=== PATIENT | female | born 1985 | race Two or more races ===

== ENCOUNTER 2024-08-25 15:34 | Emergency (ER) | payer MEDICAID, SELFPAY ==
[2024-08-25 15:35] VITALS: BMI 25.6
[2024-08-25 15:44] VITALS: BP 130/87; PULSE 88; RESP 16; TEMP 36.9; O2SAT 98
[2024-08-25 16:21] LABS: Collection Type, Urine Clean Catch; RBC,Urine 0 /hpf (0-3)
[2024-08-25 16:29] LABS: Bilirubin,Urine Negative (Negative); Blood,Urine Negative (Negative); Clarity,Urine Clear (Clear/Hazy); Color,Urine Colorless (Lt Yel-Yel); Culture Indicated,Urine Not Indicated; Glucose, Urine Negative (Negative); Ketones,Urine Negative (Negative); Leukocyte Esterase,Urine Negative (Negative); Nitrite,Urine Negative (Negative); PH,Urine 6.5 (5.0-7.0); Protein,Urine Negative (Neg - Trace); Specific Gravity,Urine 1.006 (1.001-1.035); Squamous Epithelial Cell,Urine < 1 /hpf (0-5); Urobilinogen,Urine Negative mg/dL (0.0-1.0); WBC,Urine < 1 /hpf (0-5)
[2024-08-25 16:41] LABS: HCG Qualitative,Urine Negative
--- NOTE | 2024-08-25 16:43 | PD.EDRME ---
Rapid Medical Screening Exam RME Arrival date/time: 08/25/24 15:34 39-year-old female presents to emergency department complains of left flank pain left abdominal pain Chief Complaint: Abdominal Pain Time Seen by Provider: 08/25/24 15:40 Vital signs: Vital Signs Temperature 98.5 F 08/25/24 15:44 Pulse Rate 88 08/25/24 15:44 Respiratory Rate 16 08/25/24 15:44 Blood Pressure 130/87 H 08/25/24 15:44 Pulse Oximetry (%) 98 08/25/24 15:44 Oxygen Delivery Method Room Air 08/25/24 15:44
--- NOTE | 2024-08-25 16:44 | XR_ITS ---
Examination: CT abdomen and pelvis without contrast. Coronal 3-D reconstructions. Sagittal 2-D reconstructions. Date and time of exam:August 25, 2024 1750 hrs. Comparison April 09, 2024 Indications: Onset left flank pain beginning 6 days ago CTDI: vol (mGy): 6.48 DLP: (mGycm): 346 Technique: Axial images of the abdomen have been obtained, 3 mm slice thickness Intravenous contrast material has not been administered. Low dose protocols were performed. One or more of the following dose reduction techniques were used; automated exposure control, adjustment of the mA and/or KV according to patient size, use of iterative reconstruction technique. Findings: No liver or splenic lesion Contracted gallbladder No pancreatic or adrenal mass Mild to moderate bilateral renal parenchymal scar formation No renal or ureteral calculi, there is mild dilatation of both renal calyceal systems Normal appendix No bowel obstruction or diverticulitis Anteverted uterus Urinary bladder intact The osseous structures are intact Impression: Mild dilatation of the renal pelvicalyceal systems bilaterally without renal or ureteral calculi, consider urinary tract infection Normal appendix No bladder mass or bladder calculi
[2024-08-25 18:04] LABS: Basophils % (Auto) 1 % (0-2.5); Eosinophils # (Auto) 0.1 Thou/mm3 (0.0-0.5); Eosinophils % (Auto) 1 % (0-10); Hematocrit 39.7 % (36.0-46.0); Hemoglobin 12.5 g/dL (12.0-16.0); Immature Granulocytes % (Auto) 1 % (0-0); Immature Granulocytes Auto 0.02 Thou/mm3 (0.00-0.00); Lymphocytes # (Auto) 1.1 Thou/mm3 (1.0-4.8); Lymphocytes % (Auto) 26 % (10-50); Mean Corpuscular HGB Conc 31.5 g/dl (31.0-37.0); Mean Corpuscular Hemoglobin 24.2 pg (25.0-35.0); Mean Corpuscular Volume 77 fL (80-100); Monocytes # (Auto) 0.5 Thou/mm3 (0.0-0.8); Monocytes % (Auto) 12 % (0-12); Neutrophils # (Auto) 2.5 Thou/mm3 (1.8-7.7); Neutrophils % (Auto) 60 % (37-80); Nucleated Red Blood Cell % 0 /100 WBC (0); Platelet Count 191 Thou/mm3 (140-440); RDW Standard Deviation 39.1 fL (36.4-46.3); Red Blood Count 5.16 Miln/mm3 (4.00-5.20); White Blood Count 4.2 Thou/mm3 (3.6-11.0)
[2024-08-25 18:30] LABS: Alanine Aminotransferase 36 U/L (10-49); Albumin, Serum 4.6 gm/dL (3.5-5.0); Albumin/Globulin Ratio 1.1 (1.2-2.2); Alkaline Phosphatase 90 U/L (46-116); Anion Gap 10 (7-16); Aspartate Amino Transferase 36 U/L (0-34); BUN/Creatinine Ratio 12 Ratio (12-20); Bilirubin,Total 0.3 mg/dL (0.3-1.2); Blood Urea Nitrogen 11 mg/dL (9-23); Calcium 9.3 mg/dL (8.3-10.6); Calcium (Corrected) 9.3 mg/dL (8.5-10.1); Carbon Dioxide 23.4 mMol/L (20.0-31.0); Chloride 103 mMol/L (98-107); Creatinine (Component) 0.9 mg/dL (0.6-1.3); Estimated Creatinine Clearance 74.2 mL/min (>60); Globulin 4.2 gm/dL (2.3-3.5); Glucose 76 mg/dL (74-106); Lipase 90 U/L (12-53); Osmolality,Calculated 270 (275-295); Potassium 3.2 mMol/L (3.4-5.1); Sodium 136 mMol/L (136-145); Total Protein 8.8 gm/dL (5.7-8.2); eGFR > 60 See Note
--- NOTE | 2024-08-25 21:08 | PD.EDABDPN ---
ED Abdominal Pain RME/HPI General Chief Complaint: Abdominal Pain Stated complaint: LLQ PAIN SINCE SATURDAY/CONSTIPATION Time seen by provider: 08/25/24 15:40 Arrival date/time: 08/25/24 15:34 Limitations: no limitations RME / HPI RME / HPI narrative: DR. DOVER MAIN ED EVALUATION: 39-year-old female presents to emergency department complains of left flank pain and left abdominal pain that is dull in nature and has been intermittent on and off since . The patient states that she had similar pain when she was seen previously and treated with antibiotics for UTI . Patient states she does not have burning when she urinates but the pain is approximately a 3 out of 10 and nonradiating. She has separate mid abdominal pain that she states she gets frequently. Nothing usually makes it better or worse. It is not associated with food and the patient is not a heavy drinker. The patient states that she has sexually active but has no vaginal discharge or change in smell of her discharge at this time. No change in her stool. No nausea vomiting or diarrhea. Patient does report constipation since . PMHx: Asthma and anemia Social Hx: No tobacco, alcohol, or substance use. Related Data Home Medications ?Medication ?Instructions ?Recorded ?Confirmed potassium chloride 8 mEq 20 meq PO BID 02/26/19 03/26/23 capsule,extended release hydroxychloroquine 200 mg tablet 200 mg PO BID 01/02/21 03/26/23 vit no.95-ferrous 1 tab PO QDAY 12/12/22 03/26/23 fumarate 28 mg-folic acid 800 mcg tablet () Previous Rx's ?Medication ?Instructions ?Recorded docusate sodium 100 mg capsule 100 mg PO BID #60 caps 03/29/23 (Colace) lanolin 50 % topical ointment 1 applic topical TID PRN skin 03/29/23 irritation #15 tubes hydrocodone 5 mg-acetaminophen 325 1 tab PO Q6H PRN pain #30 tabs 03/30/23 mg tablet amoxicillin 875 mg-potassium 1 tab PO BID #10 tabs 11/27/23 clavulanate 125 mg tablet acetaminophen 500 mg capsule 1,000 mg (2 x 500 mg) PO Q8HR PRN 04/09/24 pain #30 caps cyclobenzaprine 5 mg tablet 5 mg PO TID PRN muscle spasm #30 04/09/24 tabs ibuprofen 600 mg tablet 600 mg PO Q8H PRN fever or pain 06/24/24 #20 tabs ondansetron 4 mg disintegrating 4 mg PO Q8H PRN nausea and 06/24/24 tablet vomiting #14 tabs Allergies Allergy/AdvReac Type Severity Reaction Status Date / Time No Known Allergies Allergy Verified 10/15/23 09:12 Review of Systems Review of Systems Systems Reviewed: All systems reviewed, normal except as documented Narrative Review of Systems: GEN: No fever, no chills, no weight loss EYES: No discharge, no visual changes, no pain HEENT: No ear pain, no congestion, no sore throat PULM: No shortness of breath, no cough, no congestion CV: No chest pain, no dyspnea on exertion, no palpitations GI: No nausea, no vomiting, no diarrhea, + left flank pain, + left abdominal pain, + mid abdominal pain (see HPI), + constipation : No frequency, no urgency and no dysuria MUSC/SKEL: No joint pain, no back pain SKIN: No rash PSYCH: No hallucinations, no depression HEME/LYMPH: No easy bleeding or bruising tendencies NEURO: No weakness, no headache Past Medical History Past Medical History RESPIRATORY: Positive Asthma REPRODUCTIVE: Positive Previous Pregnancies HEMATOLOGIC: Positive Blood Disorders and Anemia OTHER HISTORY: Positive Autoimmune Disease Family History FAMILY HISTORY: Positive Family Cardiac Disorders, Family Cancer, Family Surgery and Family Anesthesia Reaction Social History SMOKING STATUS: Never smoker SECOND HAND EXPOSURE: No SUBSTANCE USE: does not use ALCOHOL: Never ED Exam General Limitations: Present no limitations General appearance: Present alert and in no apparent distress (looks in no acute distress) Head Head exam: Present atraumatic, normocephalic and normal inspection Eye Eye exam: Present normal appearance, PERRL and EOMI ENT ENT exam: Present normal exam, normal oropharynx and mucous membranes dry Neck Neck exam: Present normal inspection, full ROM and trachea midline Chest Chest inspection: Present normal inspection and symmetric chest wall rise Respiratory Respiratory exam: Present normal lung sounds bilaterally Cardiovascular Cardiovascular exam: Present regular rate, normal rhythm and normal heart sounds Abdominal Exam Abdominal exam: Present soft and normal bowel sounds; Absent tenderness, rebound or Hutchison's sign Extremities Exam Extremities exam: Present normal inspection and full ROM Back Exam Back exam: Present normal inspection and full ROM; Absent CVA tenderness (R) or CVA tenderness (L) Neurological Exam Neurological exam: Present alert, oriented X3 and CN II-XII intact Psychiatric Psychiatric exam: Present normal affect and normal mood Skin Skin exam: Present warm, dry, intact and normal color Course Quality Measures none Orders Category Date Time Status CT abdomen pelvis wo con Stat Exams 08/25/24 16:44 Completed US renal BI Stat Exams 08/25/24 21:22 Completed CBC Stat Lab 08/25/24 17:41 Completed Comprehensive Metabolic Panel Stat Lab 08/25/24 17:41 Completed HCG Qualitative,Urine Stat Lab 08/25/24 16:15 Completed Lipase Stat Lab 08/25/24 17:41 Completed UA, C/S IF [Urinalysis, C/S if Indicated] Stat Lab 08/25/24 16:15 Completed Ibuprofen Tab [Motrin Tab] Med 08/25/24 15:48 Discontinued 600 mg PO X1 ONE Ketorolac Inj [Toradol Inj] Med 08/25/24 21:24 Discontinued 30 mg IM X1 ONE Vital Signs Vital signs: Vital Signs Temperature 98.5 F 08/25/24 15:44 Pulse Rate 88 08/25/24 15:44 Respiratory Rate 16 08/25/24 15:44 Blood Pressure 130/87 H 08/25/24 15:44 Pulse Oximetry (%) 98 08/25/24 15:44 Oxygen Delivery Method Room Air 08/25/24 15:44 Abdominal Pain MDM MDM Narrative MDM Narrative:: Differential diagnosis includes acute on chronic bilateral renal calyceal dilatation, complication of immune disorder, constipation, cyst, pancreatitis, UTI, muscle strain, The CT from today compared to the 1 in March shows some mild increase calyceal dilatation. No UTI or stone IMirna am scribing for and in the presence of Dr. Dover. Patient data External records reviewed:: [facility] previous records (Reviewed last ED visit dated 06/24/24, discharged with the following: Pelvic pain.) Clinical information provided by:: patient Social determinants that could affect healthcare access:: none Patient has the following chronic illnesses:: Asthma and anemia How is presenting disease/condition affected by chronic disease/condition?: uneffected by Evaluation data The following diagnostics were reviewed and interpreted by me:: lab results and radiology exam(s) Lab and/or radiology exams considered but not ordered:: none Interpretation Summary: Procedure(s): US renal BI Accession Number(s): [id number] cc: Juan Luis Dawson MD; NO PRIMARY/FAMILY,PHYSICIAN; Leigh Dover MD~ Examination: Retroperitoneal ultrasound, complete Technique: Multiple high resolution grayscale images of the retroperitoneum obtained, including kidneys and bladder. Exam date and time:August 25, 2024 2141 hrs. Indications: Bilateral flank pain beginning 6 days ago Findings: Right kidney 10.8 x 4.7 x 4.7 cm renal cortex 1.5 cm Left kidney 11.6 x 6.3 x 3.9 cm cortex 1.9 cm Mild bilateral renal parenchymal scar formation No hydronephrosis No bladder mass or bladder calculi Bladder prevoid by 144 cc postvoid volume 16 cc Impression: Mild bilateral renal parenchymal scar formation No hydronephrosis or renal calculi Dictated By: Juan Luis Dawson MD Procedure(s): CT abdomen pelvis wo con Accession Number(s): [id number] cc: Ludy PERRIN),Santos GARCIA; Juan Luis Dawson MD; NO PRIMARY/FAMILY,PHYSICIAN~ Examination: CT abdomen and pelvis without contrast. Coronal 3-D reconstructions. Sagittal 2-D reconstructions. Date and time of exam:August 25, 2024 1750 hrs. Comparison April 09, 2024 Indications: Onset left flank pain beginning 6 days ago CTDI: vol (mGy): 6.48 DLP: (mGycm): 346 Technique: Axial images of the abdomen have been obtained, 3 mm slice thickness Intravenous contrast material has not been administered. Low dose protocols were performed. One or more of the following dose reduction techniques were used; automated exposure control, adjustment of the mA and/or KV according to patient size, use of iterative reconstruction technique. Findings: No liver or splenic lesion Contracted gallbladder No pancreatic or adrenal mass Mild to moderate bilateral renal parenchymal scar formation No renal or ureteral calculi, there is mild dilatation of both renal calyceal systems Normal appendix No bowel obstruction or diverticulitis Anteverted uterus Urinary bladder intact The osseous structures are intact Impression: Mild dilatation of the renal pelvicalyceal systems bilaterally without renal or ureteral calculi, consider urinary tract infection Normal appendix No bladder mass or bladder calculi Dictated By: Juan Luis Dawson MD Medications / Prescriptions Medications or Prescriptions considered but not ordered:: none Medication administrations:: Medication Administration History Discontinued Medications Ibuprofen (Ibuprofen Tab 600 Mg Tablet) 600 mg PO X1 ONE Stop: 08/25/24 15:49 Last Admin: 08/25/24 16:24 Dose: Not Given Documented By: Non-Admin Reason: Patient Refused Comments: Refused medication, patient states she does not take NSAIDs d/t auto immune disorder Ketorolac Tromethamine (Ketorolac Inj 60 Mg/2 Ml Vial) 30 mg IM X1 ONE Stop: 08/25/24 21:25 Last Admin: 08/25/24 21:27 Dose: 30 mg Documented By: OA see above Consultations Consultation(s) initiated? (list below): No Diagnosis Differential diagnosis abdominal pain: other (acute on chronic bilateral renal calyceal dilatation, complication of immune disorder, constipation, cyst, pancreatitis, UTI, muscle strain,) Most likely diagnosis given after review of the tests above:: see below Admission Indicated Admission indicated?: not indicated Admission Request Was there a request for admission?: No Disposition Plan Disposition Plan: Discharge Discharge Attestation Discharge Attestation: The patient and all family members were given an opportunity to ask questions and understood the discharge instructions. Discharge instructions specifically effects, indications for sooner follow up or return to the emergency department, and the expected course of current diagnosis. Patient condition: Stable Discharge Plan Plan Patient Disposition: HOME (Self Care) Patient condition on transfer: Stable Prescriptions/Referrals Prescriptions/Med Rec: No Action hydroxychloroquine 200 mg tablet 200 mg PO BID potassium chloride 8 mEq Capsule, Extended Release 20 meq PO BID PNV cmb#95-ferrous fumarate-FA [] 28 mg iron- 800 mcg tablet 1 tab PO QDAY Patient Comments: TAKE 1 TABLET BY MOUTH EVERY DAY amoxicillin-pot clavulanate 875-125 mg tablet 1 tab PO BID Qty: 10 0RF acetaminophen 500 mg capsule 1,000 mg PO Q8HR PRN (Reason: pain) Qty: 30 0RF cyclobenzaprine 5 mg tablet 5 mg PO TID PRN (Reason: muscle spasm) Qty: 30 0RF ibuprofen 600 mg tablet 600 mg PO Q8H PRN (Reason: fever or pain) Qty: 20 0RF ondansetron 4 mg tablet,disintegrating 4 mg PO Q8H PRN (Reason: nausea and vomiting) Qty: 14 0RF docusate sodium [Colace] 100 mg capsule 100 mg PO BID Qty: 60 0RF lanolin 50 % ointment 1 applic topical TID PRN (Reason: skin irritation) Qty: 15 0RF hydrocodone-acetaminophen 5-325 mg tablet 1 tab PO Q6H MDD 6 PRN (Reason: pain) Qty: 30 0RF Referrals: No Primary/Family,Physician [Primary Care Provider] - In 1 week Problem List Clinical Impression: Abdominal pain in female Patient/Caregiver Discharge Instructions Education Materials: ED Flank Pain, Uncertain Cause Additional Instructions: Return to the emergency department for worsening symptoms, or any other concerns. You can take [id number] Tylenol as needed 650 mg oral 3 times a day. You will need to follow-up with your primary care to get referral for your bilateral incidental findings on your CT scan and renal ultrasound. They to follow-up can lead to failed diagnosis or delayed diagnosis. Print Language: Citizen Of [place] Stand Alone Forms: [employer] Info., Work/School Release, Patient Portal Info Letter
--- NOTE | 2024-08-25 21:22 | XR_ITS ---
Examination: Retroperitoneal ultrasound, complete Technique: Multiple high resolution grayscale images of the retroperitoneum obtained, including kidneys and bladder. Exam date and time:August 25, 2024 2141 hrs. Indications: Bilateral flank pain beginning 6 days ago Findings: Right kidney 10.8 x 4.7 x 4.7 cm renal cortex 1.5 cm Left kidney 11.6 x 6.3 x 3.9 cm cortex 1.9 cm Mild bilateral renal parenchymal scar formation No hydronephrosis No bladder mass or bladder calculi Bladder prevoid by 144 cc postvoid volume 16 cc Impression: Mild bilateral renal parenchymal scar formation No hydronephrosis or renal calculi
[2024-08-25] MEDS: KETOROLAC INJ 60 MG/2 ML VIAL 30 MG IM (21:27)
== END 2024-08-25 23:40 | disposition home or self-care (01) ==
PROVIDERS: Nurse Practitioner Primary Care; Emergency Provider Emergency Medicine
DX: R10.32 Left lower quadrant pain (principal)
CPT/HCPCS: 36415; 74176; 76770; 80053; 81001; 81025; 83690; 85025; 96372; 99284; J1885